=== PATIENT | male | born 1985 | race American Indian/Alaskan Native ===

== ENCOUNTER 2016-09-26 15:09 | Emergency (ER) | payer OTHER ==
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
[2016-09-26 17:33] VITALS: BP 110/65
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
== END 2016-09-26 17:33 | disposition home or self-care (01) ==
LOC: ED 15:09
DX: S16.1XXA Strain of muscle, fascia and tendon at neck level, initial encounter (principal); V49.59XA Passenger injured in collision with other motor vehicles in traffic accident, initial encounter; Y93.89 Activity, other specified; Y99.8 Other external cause status; Y92.488 Other paved roadways as the place of occurrence of the external cause
CPT/HCPCS: 72040; 99283

== ENCOUNTER 2016-12-30 18:42 | Emergency (ER) | payer OTHER ==
[2016-12-30 20:27] VITALS: BP 135/82
== END 2016-12-31 01:40 | disposition left against medical advice (07) ==
LOC: ED 18:42
DX: M54.2 Cervicalgia (principal); M54.9 Dorsalgia, unspecified; M79.604 Pain in right leg; V89.2XXA Person injured in unspecified motor-vehicle accident, traffic, initial encounter; Y93.89 Activity, other specified; Y99.9 Unspecified external cause status; Y92.410 Unspecified street and highway as the place of occurrence of the external cause; Z53.21 Procedure and treatment not carried out due to patient leaving prior to being seen by health care provider

== ENCOUNTER 2018-11-29 22:57 | Emergency (ER) | payer SELFPAY ==
[2018-11-29 23:30] VITALS: BP 144/90
[2018-11-30] MEDS ORDERED: TYLENOL PO ONE (00:22)
[2018-11-30] MEDS ORDERED: IBUPROFEN PO ONE (00:23)
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
== END 2018-11-30 03:51 | disposition left against medical advice (07) ==
LOC: ED 22:57
DX: M79.671 Pain in right foot (principal); Z53.21 Procedure and treatment not carried out due to patient leaving prior to being seen by health care provider

== ENCOUNTER 2020-12-11 13:18 | Emergency (ER) | payer SELFPAY ==
[2020-12-11 14:23] VITALS: BP 121/68
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
== END 2020-12-11 16:58 | disposition home or self-care (01) ==
LOC: ED 13:18
DX: M54.2 Cervicalgia (principal); M54.5 Low back pain; Z79.899 Other long term (current) drug therapy; V87.7XXA Person injured in collision between other specified motor vehicles (traffic), initial encounter; Y93.89 Activity, other specified; Y92.488 Other paved roadways as the place of occurrence of the external cause; Y99.8 Other external cause status
CPT/HCPCS: 99281